=== PATIENT | male | born 1985 | race Caucasian/White ===

== ENCOUNTER 2018-11-22 11:10 | Emergency (ER) | payer SELFPAY ==
[~2018-11-22] VITALS: Ht 172.7 cm; Wt 81.0 kg
[2018-11-22 11:20] VITALS: BP 116/76; PULSE 97; RESP 18; Ht 172.7 cm; Wt 81.0 kg
[2018-11-22] MEDS ORDERED: KETOROLAC 60 MG INJ IM STA (11:51)
[2018-11-22] MEDS ORDERED: NAPR-985 PO (13:15)
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
== END 2018-11-22 13:30 | disposition home or self-care (01) ==
LOC: FTE 11:10
DX: S20.219A Contusion of unspecified front wall of thorax, initial encounter (principal); F17.210 Nicotine dependence, cigarettes, uncomplicated; V18.0XXA Pedal cycle driver injured in noncollision transport accident in nontraffic accident, initial encounter; Y92.89 Other specified places as the place of occurrence of the external cause
CPT/HCPCS: 71045; 71100; 96372; 99284; J1885